=== PATIENT | male | born 1985 | race African-American/Black ===

== ENCOUNTER 2016-07-06 14:35 | Emergency (ER) | payer BC ==
[~2016-07-06] VITALS: Ht 182.9 cm; Wt 88.5 kg
[2016-07-06] MEDS ORDERED: NALTREXONE HCL50 MG PO (15:05)
[2016-07-06] MEDS ORDERED: ESCITALOPRAM OX20 MG PO (15:05)
[2016-07-06 15:08] VITALS: BP 141/106
== END 2016-07-06 15:10 | disposition home or self-care (01) ==
LOC: ER 14:35
DX: F41.9 Anxiety disorder, unspecified (principal)